=== PATIENT | male | born 1975 | race Hispanic/Latino ===

== ENCOUNTER 2023-04-30 08:00 | Observation (INO) | payer BC ==
[~2023-04-30] VITALS: Ht 185.4 cm; Wt 111.4 kg
[2023-05-03 11:11] LABS: BASOPHILS # (AUTO) 0.04 K/uL (0.00-0.20); BASOPHILS % (AUTO) 0.8 % (0.0-5.0); EOSINOPHILS # (AUTO) 0.06 K/uL (0.00-0.70); EOSINOPHILS % (AUTO) 1.2 % (0.0-8.0); IMMATURE GRANULOCYTE ABSOLUTE 0.02 K/uL (0-1); LYMPHOCYTES % (AUTO) 37.8 % (21.0-51.0); MEAN CORPUSCULAR HEMOGLOBIN 29.8 pg (27.0-33.0); MEAN CORPUSCULAR HGB CONC 34.1 g/dL (32.0-36.0); MEAN CORPUSCULAR VOLUME 87.3 fL (79-99); MONOCYTES # (AUTO) 0.4 K/uL (0.1-1.0); MONOCYTES % (AUTO) 8.1 % (3.0-13.0); NEUTROPHILS # (AUTO) 2.7 K/uL (1.8-7.7); NEUTROPHILS % (AUTO) 51.7 % (40.0-77.0); PLATELET COUNT (AUTO) 233 K/uL (130-400); RED BLOOD CELL COUNT(AUTO) 5.04 MIL/uL (4.50-6.20); RED CELL DISTRIBUTION WIDTH 12.9 % (11.0-15.5); WHITE BLOOD COUNT (AUTO) 5.2 K/uL (4.8-10.8)
[2023-05-03 11:17] LABS: CREATININE 1.1 mg/dL (0.5-1.5); POTASSIUM 4.2 mmol/L (3.5-5.1)
[2023-05-03 11:55] VITALS: BP 141/89; PULSE 68; RESP 20
[2023-05-03] MEDS ORDERED: SIMV-46 PO (12:14)
[2023-05-03] MEDS ORDERED: LISI40TA9 PO (12:14)
[2023-05-03] MEDS ORDERED: SEMA1PEN3 SQ (12:14)
[2023-05-06] VITALS (28 sets, daily range): BP systolic 123–145; BP diastolic 67–90; PULSE 60–92; RESP 14–19; O2SAT 95
[2023-05-06] MEDS ORDERED: CEFAZOLIN SODIUM 1 GM VIAL IRRIG ONE
[2023-05-06] MEDS ORDERED: LIDOCAINE 2%-EPI PF 30 ML+BUPIVACAINE/PF 0.25% 30ML /60ML SYR IJ SCH ×4 (06:00→08:00)
[2023-05-06] MEDS ORDERED: 0.9%NACL 1000ML 1,000 ML IV ONE (06:09)
[2023-05-06] MEDS ORDERED: CEFAZOLIN SODIUM 1 GM VIAL ONE ×3 (06:09→12:18)
[2023-05-06] MEDS ORDERED: PROPOFOL 10 MG/ML 20ML VIAL IV ONE (06:58)
[2023-05-06] MEDS ORDERED: ROCURONIUM 10MG/1ML SYR 10 MG/ML ML ONE ×3 (06:58→10:54)
[2023-05-06] MEDS ORDERED: FENTANYL CITRATE PF 50 MCG/1 ML 5ML AMP IV ONE (06:58)
[2023-05-06] MEDS ORDERED: MIDAZOLAM HCL 1 MG/ML 2ML VIAL ONE (06:59)
[2023-05-06] MEDS ORDERED: MAGNESIUM SULFATE 1 GM/2 ML VIAL ONE (07:22)
[2023-05-06] MEDS ORDERED: KETAMINE 50MG/ML SYRINGE 50 MG/ML DISP.SYRIN ONE (07:22)
[2023-05-06] MEDS ORDERED: PROPOFOL 1000 MG/100 ML 100 ML IV ONE (07:23)
[2023-05-06] MEDS ORDERED: ONDANSETRON 4MG INJ ONE (07:25)
[2023-05-06] MEDS ORDERED: DEXAMETHASONE SOD PHOSPHATE 10MG/ML 1ML VIAL ONE (08:11)
[2023-05-06] MEDS ORDERED: MANNITOL 20% 500ML BAG 500 ML IV ONE (08:16)
[2023-05-06] MEDS ORDERED: CEFAZOLIN SODIUM 2 GM VIAL IVPB ONE ×2 (08:19)
[2023-05-06] MEDS ORDERED: BUPIVACAINE/EPI/PF 0.25% 50 ML VIAL IJ ONE ×2 (08:26)
[2023-05-06] MEDS ORDERED: THROMBIN 20000 UNITS/VIAL POWDER TP ONE ×2 (08:26)
[2023-05-06] MEDS ORDERED: PHENYLEPHRINE HCL 10 MG/ML 1ML VIAL IV ONE ×3 (08:41→11:10)
[2023-05-06] MEDS ORDERED: FENTANYL CITRATE PF 50 MCG/1 ML 2ML VIAL ONE ×3 (10:03→13:17)
[2023-05-06] MEDS ORDERED: KETOROLAC 30MG VIAL (30MG/ML) ONE (12:50)
[2023-05-06] MEDS ORDERED: MEPERIDINE-PF 25 MG/ML SYG ONE (12:52)
[2023-05-06] MEDS ORDERED: NEOSTIGMINE 5MG/5ML SYR IV ONE (12:53)
[2023-05-06] MEDS ORDERED: GLYCOPYRROLATE 1 MG/5 ML SYRINGE ONE (12:53)
[2023-05-06] MEDS ORDERED: 0.9%NACL 10ML VIAL IVP PRN (13:30)
[2023-05-06] MEDS ORDERED: HYDROCODONE/ACETAMINOPHEN 5/325 MG TAB PO PRN (13:30)
[2023-05-06] MEDS ORDERED: CEFAZOLIN SODIUM 3 GM VIAL IVPB SCH (13:30)
[2023-05-06] MEDS ORDERED: MORPHINE 2 MG SYG IVP PRN (13:30)
[2023-05-06] MEDS ORDERED: LACTATED RINGERS 1000ML 1,000 ML IV SCH (13:30)
[2023-05-06] MEDS ORDERED: CEFAZOLIN SODIUM 3 GM in DEXTROSE 5%-WATER 100 ML IVPB SCH ×2 (13:30→13:35)
[2023-05-06] MEDS ORDERED: PROMETHAZINE HCL 25 MG/ML 1ML AMPULE IM PRN (13:30)
[2023-05-06] MEDS: DEXAMETHASONE SOD PHOSPHATE 4 MG/ML 1ML VIAL IVP SCH (19:47)
[2023-05-06] MEDS ORDERED: SIMVASTATIN 20 MG TABLET PO SCH (21:00)
[2023-05-07] VITALS: BP 123/76; PULSE 70; RESP 18
[2023-05-07] MEDS: DEXAMETHASONE SOD PHOSPHATE 4 MG/ML 1ML VIAL IVP SCH ×2 (01:37→08:16)
[2023-05-07 03:55] VITALS: BP 131/83; PULSE 80; RESP 18
[2023-05-07 08:00] VITALS: O2SAT 93
[2023-05-07 08:21] VITALS: BP 147/95; PULSE 84; RESP 17
[2023-05-07] MEDS ORDERED: NON-FORMULARY MEDICATION 1 EACH (Simvastatin 1 TAB) PO SCH (09:00)
[2023-05-07] MEDS ORDERED: LISINOPRIL 40 MG TABLET PO SCH (09:00)
[2023-05-13] MEDS ORDERED: Semaglutide (Ozempic) 1 MG SQ SCH (09:00)
== END 2023-05-07 09:05 | disposition home or self-care (01) ==
LOC: EDSTATUS 05-04 15:00 → DAHIP 05-06 06:03 → EDSTATUS 05-06 15:00 → 4BH 05-06 15:45
PROVIDERS: ADMIT Neurological Surgery; ATTEND Neurological Surgery
DX: M48.02 Spinal stenosis, cervical region (principal); G99.2 Myelopathy in diseases classified elsewhere; E11.9 Type 2 diabetes mellitus without complications; Z79.84 Long term (current) use of oral hypoglycemic drugs; Z79.899 Other long term (current) drug therapy
CPT/HCPCS: 80048; 85025; 36415; 71045; 93005; 22554; 22585; 22845; 20930; 96365; 96366; 96375; 82948 ×2; 72020; 96376; A6260; G0378 ×17; G0379; A4510; A4663; J7030 ×2; A4344; J3010 ×4; J0690 ×6; J3490 ×6; J1100 ×4; J2710; J0665; J3475; J2250; J2704 ×2; J7060; J2405; J1885; J2175; J2371 ×3; A4649; C1776; A4215; A4223; A4222; A4221; A4600

== ENCOUNTER → 2023-06-03 | Outpatient (CLI) | payer BC ==
[~2023-06-03] MED LIST: LISI40TA9 PO; SEMA1PEN3 SQ; SIMV-46 PO
== END | disposition home or self-care (01) ==
LOC: RAH 08:24
PROVIDERS: ATTEND Neurological Surgery
DX: M47.812 Spondylosis without myelopathy or radiculopathy, cervical region (principal); M43.22 Fusion of spine, cervical region
CPT/HCPCS: 72040